=== PATIENT | male | born 1980 | race Caucasian/White ===

== ENCOUNTER 2024-01-04 19:22 | Emergency (ER) | payer SELFPAY ==
[~2024-01-04] VITALS: Ht 170.2 cm; Wt 117.5 kg
[2024-01-04 19:29] VITALS: O2SAT 97
[2024-01-04] MEDS ORDERED: AMLODIPINE 10MG TABLET PO ONE (19:45)
[2024-01-04 20:24] LABS: BASOPHILS % 0.6 % (0.0-2.0); EOSINOPHILS % 1.6 % (0.0-5.0); HEMOGLOBIN. 15.2 g/dL (14.0-18.0); LYMPHOCYTES % 27.3 % (20.0-50.0); MEAN CORPUSCULAR HEMOGLOBIN 27.4 pg (28.0-32.0); MEAN CORPUSCULAR VOLUME 82.8 fL (80.0-94.0); MEAN PLATELET VOLUME 7.1 fl (7.4-10.4); MONOCYTES % 6.6 % (2.0-8.0); NEUTROPHILS % 63.9 % (40.0-76.0); PLATELET 501 x1000/uL (130-400); RED BLOOD CELL COUNT 5.56 mill/uL (4.7-6.1); RED CELL DISTRIBUTION WIDTH 14.7 % (11.6-14.6); WHITE BLOOD COUNT 10.4 x1000/uL (4.5-11.0)
[2024-01-04 20:28] LABS: CHLORIDE 107 mEq/L (98-107); POTASSIUM 3.9 mEq/L (3.5-5.1); SODIUM 138 mEq/L (136-145)
[2024-01-04 20:29] LABS: CARBON DIOXIDE 25 mEq/L (21-32)
[2024-01-04 20:35] LABS: CREATININE 1.1 mg/dL (0.6-1.3); GLUCOSE 83 mg/dL (70-105); UREA NITROGEN BLOOD 10 mg/dL (9-23)
[2024-01-04] MEDS ORDERED: AMLO5TAB4 MT (20:56)
[2024-01-04 22:18] VITALS: BP 199/142; PULSE 84; RESP 12; TEMP 98.9
[2024-01-04] MEDS: AMLODIPINE 5MG TABLET PO NR (22:21)
== END 2024-01-04 22:23 | disposition home or self-care (01) ==
LOC: ER 19:22
DX: I10 Essential (primary) hypertension (principal); F19.90 Other psychoactive substance use, unspecified, uncomplicated; M10.9 Gout, unspecified
CPT/HCPCS: 36415; 80048; 85025; 93005; 99284

== ENCOUNTER 2024-02-15 13:50 | Emergency (ER) | payer MEDICAID ==
[~2024-02-15] VITALS: Ht 175.3 cm; Wt 109.0 kg
[~2024-02-15 13:50] MED LIST: AMLO5TAB4 MT
[2024-02-15 13:52] VITALS: O2SAT 98
[2024-02-15] MEDS ORDERED: OFLO5DRO4 LEFT EAR (14:25)
[2024-02-15 14:35] VITALS: BP 145/88; PULSE 87; RESP 18; TEMP 98.8
== END 2024-02-15 14:39 | disposition home or self-care (01) ==
LOC: ER 14:35
DX: H60.92 Unspecified otitis externa, left ear (principal); I10 Essential (primary) hypertension
CPT/HCPCS: 99283